=== PATIENT | female | born 1935 | race Caucasian/White ===

== ENCOUNTER 2019-02-26 12:19 | Inpatient (IN) | payer MEDICARE ==
[~2019-02-26] VITALS: Ht 160 cm; Wt 88.9 kg
[~2019-02-26 12:19] MED LIST: AMIT50TA PO; ATEN1TAB4 PO; FLUT1DIS3 IH; FURO-68 PO; POTA20TA4 PO
[2019-02-26] MEDS ORDERED: ASPIRIN 81 MG TAB.CHEW PO ONE (13:00)
[2019-02-26] MEDS ORDERED: dilTIAZem 25 MG/5 ML VIAL IVP ONE (13:00)
[2019-02-26] MEDS ORDERED: dilTIAZem VIAL 125 MG in IV DEXTROSE 5% 100 ML IV ONE (13:00)
--- NOTE | 2019-02-26 13:03 | PHYS DOC ---
Past History Past Medical History: Hypertension Past Surgical History: Appendectomy, Hysterectomy, Tonsillectomy Alcohol Use: None Drug Use: None Adult General Chief Complaint Chief Complaint: SHORTNESS OF BREATH HPI HPI Patient is a 84-year-old female who presents with dyspnea on exertion. This is been getting worse for the past 5 days. No chest pain. No palpitations. No orthopnea or postural nocturnal dyspnea. No new leg swelling. She was at her primary care physician's office who noted that her EKG was significantly different than previous. She was sent to the ER for further evaluation and treatment.[] Review of Systems Review of Systems Constitutional: Denies fever or chills [] Eyes: Denies change in visual acuity, redness, or eye pain [] HENT: Denies nasal congestion or sore throat [] Respiratory: Denies cough or shortness of breath [] Cardiovascular: No additional information not addressed in HPI [] GI: Denies abdominal pain, nausea, vomiting, bloody stools or diarrhea [] : Denies dysuria or hematuria [] Musculoskeletal: Denies back pain or joint pain [] Integument: Denies rash or skin lesions [] Neurologic: Denies headache, focal weakness or sensory changes [] Endocrine: Denies polyuria or polydipsia [] All other systems were reviewed and found to be within normal limits, except as documented in this note. Current Medications Current Medications Current Medications Medications (Trade) Dose Ordered Sig/[facility] Start Time Stop Time Status Last Admin Dose Admin Aspirin (Children'S Aspirin) 324 mg 1X ONCE 02/26/19 13:00 02/26/19 13:01 Diltiazem HCl (Cardizem Iv Push) 10 mg 1X ONCE 02/26/19 13:00 02/26/19 13:01 Diltiazem HCl 125 mg/Dextrose 125 ml @ 5 mls/hr 1X ONCE 02/26/19 13:00 02/27/19 13:59 UNV Allergies Allergies Allergies Coded Allergies Type Severity Reaction Last Updated Verified Sulfa (Sulfonamide Antibiotics) Allergy Severe 06/11/16 Yes celecoxib Allergy Intermediate Hives 06/11/16 Yes Physical Exam Physical Exam Constitutional: Well developed, well nourished, no acute distress, non-toxic appearance. [] HENT: Normocephalic, atraumatic, bilateral external ears normal, oropharynx moist, no oral exudates, nose normal. [] Eyes: PERRLA, EOMI, conjunctiva normal, no discharge. [] Neck: Normal range of motion, no tenderness, supple, no stridor. [] Cardiovascular:Heart rate is tachycardia with an irregularly irregular rhythm, no murmur [] Lungs & Thorax: Bilateral breath sounds clear to auscultation [] Abdomen: Bowel sounds normal, soft, no tenderness, no masses, no pulsatile masses. [] Skin: Warm, dry, no erythema, no rash. [] Back: No tenderness, no CVA tenderness. [] Extremities: No tenderness, no cyanosis, no clubbing, ROM intact, no edema. [] Neurologic: Alert and oriented X 3, normal motor function, normal sensory function, no focal deficits noted. [] Psychologic: Affect normal, judgement normal, mood normal. [] Current Patient Data Vital Signs Vital Signs Date Time Temp Pulse Resp B/P (MAP) Pulse Ox O2 Delivery O2 Flow Rate FiO2 02/26/19 12:40 97.3 120 24 95 Room Air EKG EKG EKG shows an irregular rhythm at 130 bpm, no P waves found. QRS axis of 146, right axis deviation, QTC 496 ms, no ST elevations. Interpreted by me at 1239 Repeat EKG after diltiazem showed an irregularly irregular rhythm with a rate of 10 5 bpm, QRS axis of 134, right axis deviation, QTC of 472 ms. interpreted by me at 1339[] Radiology/Procedures Radiology/Procedures PROCEDURE: PORTABLE CHEST 1V Portable chest, 02/26/2019: HISTORY: Chest pain The left ventricle is prominent. There is calcific plaquing of the aorta. No pulmonary infiltrate is seen. A dense nodule projected over the left lower chest may be a granuloma. Right hemidiaphragm is mildly elevated. There is no evidence of pleural fluid. IMPRESSION: 1. Left ventricular enlargement and aortic atherosclerosis. 2. Left lower chest nodule which may be a granuloma. Comparison with previous chest radiographs if available and/or radiographic follow-up is suggested to establish stability. 3. No acute infiltrates.[] Course & Med Decision Making Course & Med Decision Making Pertinent Labs and Imaging studies reviewed. (See chart for details) ED course: Patient arrived, was placed in bed, and tolerated exam well. After evaluation of the EKG, diltiazem bolus and infusion was started. This improved her heart rate to the low 100s from the 130s where it had been. Patient continued to be pain-free. After the return of the laboratory and imaging studies, these were discussed with the patient and family who voiced understanding. Consultation was made with hospitalist service who graciously accepted the patient for admission. She was admitted in improved condition. Medical decision making: Patient appears to be in atrial fibrillation with rapid ventricular response. This does not appear to be an acute coronary syndrome. Will start patient on enoxaparin to prevent blood clots. There is an elevated BNP without overt evidence of failure on her chest x-ray. Critical care time of 35 minutes for direct patient care, interpretation of laboratory testing and x-rays, discussion with patient and family, providing cardioactive infusion of medication, and discussion with consultants.[] Dragon Disclaimer Dragon Disclaimer This electronic medical record was generated, in whole or in part, using a voice recognition dictation system. Departure Departure: Impression: Primary Impression: Atrial fibrillation with rapid ventricular response Disposition: ADMITTED INPATIENT Admitting Physician: Rachelle Cole Condition: IMPROVED Referrals: RAY SINGH MD (PCP) MAR DELGADO DO Feb 26, 2019 13:03
[2019-02-26] MEDS ORDERED: IV DEXTROSE 5% 100 ML IV ONE (13:14)
--- NOTE | 2019-02-26 13:17 | RAD ---
Portable chest, 02/26/2019: HISTORY: Chest pain The left ventricle is prominent. There is calcific plaquing of the aorta. No pulmonary infiltrate is seen. A dense nodule projected over the left lower chest may be a granuloma. Right hemidiaphragm is mildly elevated. There is no evidence of pleural fluid. IMPRESSION: 1. Left ventricular enlargement and aortic atherosclerosis. 2. Left lower chest nodule which may be a granuloma. Comparison with previous chest radiographs if available and/or radiographic follow-up is suggested to establish stability. 3. No acute infiltrates. Electronically signed by: Romero Koo MD (02/26/2019 1:13 PM) [facility]
[2019-02-26 13:25] LABS: BASO # 0.1 x10^3/uL (0.0-0.2); BASO % 1 % (0-3); EOS # 0.2 x10^3/uL (0.0-0.7); EOS % 2 % (0-3); HEMATOCRIT 42.2 % (36.0-47.0); HEMOGLOBIN 14.3 g/dL (12.0-15.5); LYMPH # 2.1 x10^3/uL (1.0-4.8); LYMPH % 24 % (24-48); MEAN CORPUSCULAR HEMOGLOBIN 30 pg (25-35); MEAN CORPUSCULAR HGB CONC 34 g/dL (31-37); MEAN CORPUSCULAR VOLUME 89 fL (79-100); MONO # 1.2 x10^3/uL (0.0-1.1); MONO % 14 % (0-9); NEUT % 59 % (31-73); PLATELET COUNT 232 x10^3/uL (140-400); RED BLOOD COUNT 4.75 x10^6/uL (3.50-5.40); RED CELL DISTRIBUTION WIDTH 13.9 % (11.5-14.5); WHITE BLOOD COUNT 8.6 x10^3/uL (4.0-11.0)
[2019-02-26 13:42] LABS: ALBUMIN 3.6 g/dL (3.4-5.0); ALBUMIN/GLOBULIN RATIO 0.9 (1.0-1.7); CALCIUM 9.4 mg/dL (8.5-10.1); CREATININE 1.1 mg/dL (0.6-1.0); GFR 47.4; MAGNESIUM 1.9 mg/dL (1.8-2.4); TOTAL BILIRUBIN 0.5 mg/dL (0.2-1.0); TOTAL PROTEIN 7.4 g/dL (6.4-8.2)
[2019-02-26 13:44] LABS: POTASSIUM 2.5 mmol/L (3.5-5.1)
--- NOTE | 2019-02-26 13:54 | EKG ---
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
[2019-02-26] MEDS ORDERED: POTASSIUM CHLORIDE 20 MEQ/15 ML ORAL LIQUID. PO ONE (14:15)
--- NOTE | 2019-02-26 14:25 | EKG ---
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
[2019-02-26] MEDS ORDERED: ONDANSETRON PF 4 MG/2 ML VIAL. IV PRN (14:45)
[2019-02-26] MEDS ORDERED: ACETAMINOPHEN 325 MG TABLET PO PRN (14:45)
[2019-02-26] MEDS ORDERED: NITROGLYCERIN SUBLINGUAL 0.4 MG BOTTLE OF 25. SL PRN (14:45)
[2019-02-26] MEDS ORDERED: MIRT30TA3 PO (14:59)
[2019-02-26] MEDS ORDERED: MIRT15TA3 PO (14:59)
[2019-02-26] MEDS ORDERED: ENOXAPARIN ** NOTE DOSE ** SYRINGE SQ ONE (15:00)
[2019-02-26 16:23] VITALS: BP 136/76
[2019-02-26] MEDS: IPRATRPIUM/ALBUTEROL 0.5/2.5MG 3 ML NEBU. NEB SCH ×2 (16:36→20:13)
[2019-02-26] MEDS: POTASSIUM CHLORIDE 20 MEQ/15 ML ORAL LIQUID. PO SCH ×2 (17:37→19:23)
[2019-02-26 18:08] VITALS: BP 105/62
[2019-02-26 19:25] VITALS: BP 116/63
[2019-02-26 22:23] VITALS: BP 114/49
[2019-02-26 23:30] VITALS: BP 111/50
[2019-02-27] VITALS (23 sets, daily range): BP systolic 95–144; BP diastolic 46–84
[2019-02-27] MEDS: dilTIAZem VIAL 125 MG in IV DEXTROSE 5% 100 ML IV PRN ×2 (04:00→13:59)
[2019-02-27] MEDS: IPRATRPIUM/ALBUTEROL 0.5/2.5MG 3 ML NEBU. NEB SCH ×2 (05:19→09:13)
[2019-02-27 06:17] LABS: BASO # 0.1 x10^3/uL (0.0-0.2); BASO % 1 % (0-3); EOS # 0.2 x10^3/uL (0.0-0.7); EOS % 2 % (0-3); HEMOGLOBIN 13.5 g/dL (12.0-15.5); LYMPH # 3.8 x10^3/uL (1.0-4.8); LYMPH % 41 % (24-48); MEAN CORPUSCULAR HEMOGLOBIN 30 pg (25-35); MEAN CORPUSCULAR HGB CONC 34 g/dL (31-37); MEAN CORPUSCULAR VOLUME 90 fL (79-100); MONO # 1.5 x10^3/uL (0.0-1.1); MONO % 16 % (0-9); NEUT # 3.7 x10^3uL (1.8-7.7); NEUT % 40 % (31-73); PLATELET COUNT 199 x10^3/uL (140-400); RED BLOOD COUNT 4.48 x10^6/uL (3.50-5.40); RED CELL DISTRIBUTION WIDTH 13.7 % (11.5-14.5); WHITE BLOOD COUNT 9.3 x10^3/uL (4.0-11.0)
[2019-02-27 06:34] LABS: ALBUMIN 3.3 g/dL (3.4-5.0); CALCIUM 8.8 mg/dL (8.5-10.1); CREATININE 1.1 mg/dL (0.6-1.0); GFR 47.4; TOTAL BILIRUBIN 0.6 mg/dL (0.2-1.0); TOTAL PROTEIN 6.7 g/dL (6.4-8.2)
[2019-02-27 06:35] LABS: POTASSIUM 2.7 mmol/L (3.5-5.1)
[2019-02-27] MEDS: POTASSIUM CHLORIDE 20 MEQ/15 ML ORAL LIQUID. PO SCH ×4 (07:58→11:01)
--- NOTE | 2019-02-27 09:28 | PDOC2 ---
CONSULT Date of Admission DATE: 02/27/19 TIME: 09:23 Reason for Consult: atrial fibrillation with rapid ventricular response Problem List Problems Medical Problems: (1) Atrial fibrillation with rapid ventricular response Status: Acute History of Present Illness Ms Hernández is an 84 year old female who presented with complaints of shortness of breath and increasing fatigue/weakness over the last 5 days. She was evaluated in the ED and found to be in atrial fibrillation with RVR. She was admitted and started on Cardizem drip and consult was called. She reports just having no energy for the last week and some shortness of breath on exertion. She denies any sense of her heart racing normally although at the time of our discussion her rate was 155 and she states she was aware of this. She reports a prior history of palpitations and her heart pounding and has been taking atenolol for years for this. She denies any prior diagnosis of atrial fibrillation. She reports a history of sleep apnea and uses the same CPAP for many years. She denies any chest pain, lightheadedness, presyncope or syncope. She denies congestive symptoms but does sleep with HOB elevated for comfort. She reports edema worse in the evenings and gone in the mornings that she takes chlorthalidone daily for. She reports she does take a lasix occasionally when she feels it is needed. She takes daily potassium but does not increase the dose when taking lasix. She reports problems with chronic diarrhea. Past Medical History echo 03/20/16 Normal chamber sizes Left ventricular ejection fraction = 65% Unremarkable cardiac valve structures and function Pulmonary artery pressure = 29mmHg No significant pericardial effusion No prior study is available for comparison. Cardiovascular: HTN Pulmonary: Asthma, Other (RICA on CPAP) GI: GERD, Other (chronic diarrhea) Psych: Anxiety Musculoskeletal: Osteoarthritis, Swelling Past Surgical History: Appendectomy, Hysterectomy, Other (bunionectomy) Family History stroke Social History non smoker, no significant ETOH, no illicit drugs Current Medications Current Medications Diltiazem HCl (Cardizem Iv Push) 10 mg 1X ONCE IVP Last administered on at 13:09; Start 02/26/19 at 13:00; Stop 02/26/19 at 13:01; Status DC Aspirin (Children'S Aspirin) 324 mg 1X ONCE PO Last administered on 02/26/19at 13:07; Start 02/26/19 at 13:00; Stop 02/26/19 at 13:01; Status DC Diltiazem HCl 125 mg/Dextrose 125 ml @ 5 mls/hr 1X ONCE IV Last administered on 02/26/19at 13:19; Start 02/26/19 at 13:00; Stop 02/27/19 at 07:11; Status DC Dextrose 100 ml @ As Directed STK-MED ONCE IV ; Start 02/26/19 at 13:14; Stop 02/26/19 at 13:15; Status DC Diltiazem HCl (Cardizem) 125 mg STK-MED ONCE IV ; Start 02/26/19 at 13:14; Stop 02/26/19 at 13:15; Status DC Potassium Chloride (KCl Oral Soln) 40 meq 1X ONCE PO Last administered on 02/26at 14:00; Start 02/26/19 at 14:15; Stop 02/26/19 at 14:16; Status DC Ondansetron HCl (Zofran) 4 mg PRN Q4HRS PRN IV NAUSEA/VOMITING; Start 02/26/19 at 14:45; Stop 02/27/19 at 14:44 Acetaminophen (Tylenol) 650 mg PRN Q4HRS PRN PO FEVER Last administered on 02/27at 01:17; Start 02/26/19 at 14:45; Stop 02/27/19 at 14:44 Nitroglycerin (Nitrostat) 0.4 mg PRN Q5MIN PRN SL CHEST PAIN; Start 02/26/19 at 14:45; Stop 02/27/19 at 14:44 Albuterol/ Ipratropium (Duoneb) 3 ml RTQID NEB Last administered on 02/27/19at 09:13; Start 02/26/19 at 16:00; Stop 02/27/19 at 15:59 Enoxaparin Sodium (Lovenox 80mg Syringe) 80 mg 1X ONCE SQ Last administered on 02/26/19at 15:01; Start 02/26/19 at 15:00; Stop 02/26/19 at 15:01; Status DC Potassium Chloride (KCl Oral Soln) 40 meq Q2H PO Last administered on at 19:23; Start 02/26/19 at 17:15; Stop 02/26/19 at 19:16; Status DC Diltiazem HCl 125 mg/Dextrose 125 ml @ 5 mls/hr CONT PRN IV SEE I/O RECORD Last administered on 02/27/19at 04:00; Start 02/26/19 at 22:30 Potassium Chloride (KCl Oral Soln) 40 meq Q1HR PO Last administered on at 08:53; Start 02/27/19 at 07:00; Stop 02/27/19 at 10:01 Active Scripts Active Reported Mirtazapine 30 Mg Tablet 1 Tab PO PRN QHS Mirtazapine 15 Mg Tablet 1 Tab PO PRN QHS PRN Klor-Con M20 (Potassium Chloride) 20 Meq Tab.er.prt 2 Tab PO DAILY Atenolol-Chlorthalidone 100-25 (Atenolol/Chlorthalidone) 1 Each Tablet 1 Tab PO DAILY Lasix (Furosemide) 40 Mg Tablet 20 Mg PO DAILY Allergies: Coded Allergies: Sulfa (Sulfonamide Antibiotics) (Verified Allergy, Severe, 06/11/16) celecoxib (Verified Allergy, Intermediate, Hives, 06/11/16) Review of System as per HPI or negative General: Alert, Oriented X3, Cooperative, No acute distress HEENT: Atraumatic, EOMI, Mucous membr. moist/pink Lungs: Clear to auscultation, Normal air movement Heart: Other (IRR, tachycardia, no gallops, clicks or rubs) Abdomen: Normal bowel sounds, Soft, No tenderness Extremities: No cyanosis, No edema, Normal pulses Neuro: Normal speech, Strength at 5/5 X4 ext Psych/Mental Status: Mental status NL, Mood NL VITALS Vital Signs Date Time Temp Pulse Resp B/P (MAP) Pulse Ox O2 Delivery O2 Flow Rate FiO2 02/27/19 09:14 97 Nasal Cannula 1.0 02/27/19 09:07 117 22 118/55 (76) 02/26/19 12:40 97.3 Labs Laboratory Tests Test 02/26/19 13:12 02/27/19 05:50 White Blood Count 8.6 x10^3/uL (4.0-11.0) 9.3 x10^3/uL (4.0-11.0) Red Blood Count 4.75 x10^6/uL (3.50-5.40) 4.48 x10^6/uL (3.50-5.40) Hemoglobin 14.3 g/dL (12.0-15.5) 13.5 g/dL (12.0-15.5) Hematocrit 42.2 % (36.0-47.0) 40.0 % (36.0-47.0) Mean Corpuscular Volume 89 fL (79-100) 90 fL (79-100) Mean Corpuscular Hemoglobin 30 pg (25-35) 30 pg (25-35) Mean Corpuscular Hemoglobin Concent 34 g/dL (31-37) 34 g/dL (31-37) Red Cell Distribution Width 13.9 % (11.5-14.5) 13.7 % (11.5-14.5) Platelet Count 232 x10^3/uL (140-400) 199 x10^3/uL (140-400) Neutrophils (%) (Auto) 59 % (31-73) 40 % (31-73) Lymphocytes (%) (Auto) 24 % (24-48) 41 % (24-48) Monocytes (%) (Auto) 14 % (0-9) 16 % (0-9) Eosinophils (%) (Auto) 2 % (0-3) 2 % (0-3) Basophils (%) (Auto) 1 % (0-3) 1 % (0-3) Neutrophils # (Auto) 5.0 x10^3uL (1.8-7.7) 3.7 x10^3uL (1.8-7.7) Lymphocytes # (Auto) 2.1 x10^3/uL (1.0-4.8) 3.8 x10^3/uL (1.0-4.8) Monocytes # (Auto) 1.2 x10^3/uL (0.0-1.1) 1.5 x10^3/uL (0.0-1.1) Eosinophils # (Auto) 0.2 x10^3/uL (0.0-0.7) 0.2 x10^3/uL (0.0-0.7) Basophils # (Auto) 0.1 x10^3/uL (0.0-0.2) 0.1 x10^3/uL (0.0-0.2) Prothrombin Time 11.5 SEC (9.4-11.4) Prothromb Time International Ratio 1.2 (0.9-1.1) Sodium Level 141 mmol/L (136-145) 141 mmol/L (136-145) Potassium Level 2.5 mmol/L (3.5-5.1) 2.7 mmol/L (3.5-5.1) Chloride Level 101 mmol/L (98-107) 104 mmol/L (98-107) Carbon Dioxide Level 28 mmol/L (21-32) 27 mmol/L (21-32) Anion Gap 12 (6-14) 10 (6-14) Blood Urea Nitrogen 27 mg/dL (7-20) 27 mg/dL (7-20) Creatinine 1.1 mg/dL (0.6-1.0) 1.1 mg/dL (0.6-1.0) Estimated GFR (Cockcroft-Gault) 47.4 47.4 BUN/Creatinine Ratio 25 (6-20) 25 (6-20) Glucose Level 99 mg/dL (70-99) 105 mg/dL (70-99) Calcium Level 9.4 mg/dL (8.5-10.1) 8.8 mg/dL (8.5-10.1) Magnesium Level 1.9 mg/dL (1.8-2.4) Total Bilirubin 0.5 mg/dL (0.2-1.0) 0.6 mg/dL (0.2-1.0) Aspartate Amino Transf (AST/SGOT) 19 U/L (15-37) 18 U/L (15-37) Alanine Aminotransferase (ALT/SGPT) 21 U/L (14-59) 17 U/L (14-59) Alkaline Phosphatase 84 U/L (46-116) 74 U/L (46-116) Troponin I Quantitative 0.031 ng/mL (0-0.055) HU-Jfm-F-Type Natriuretic Peptide 7759 pg/mL (0-449) Total Protein 7.4 g/dL (6.4-8.2) 6.7 g/dL (6.4-8.2) Albumin 3.6 g/dL (3.4-5.0) 3.3 g/dL (3.4-5.0) Albumin/Globulin Ratio 0.9 (1.0-1.7) 1.0 (1.0-1.7) Lipase 103 U/L (73-393) Images CXR - IMPRESSION: 1. Left ventricular enlargement and aortic atherosclerosis. 2. Left lower chest nodule which may be a granuloma. Comparison with previous chest radiographs if available and/or radiographic follow-up is suggested to establish stability. 3. No acute infiltrates. EKG - atrial fibrillation with RVR, RBBB, no acute ischemic changes Assessment/Plan 1. atrial fibrillation with RVR unknown duration - Cardizem for rate control, [id number]. Will need OAC. Plan rate control and MCT for burden on discharge. Check echo and tsh. correct electrolytes. 2. trop elevation - indeterminate range. likely secondary to #1. repeat x 1 and consider outpatient MPI. 3. severe hypokalemia - likely secondary to diuretic use in combination with diarrhea. Replace and discontinue Lasix and chlorthalidone. 4. Hypertension - controlled. 5. venous insufficiency - KATHRYN stoll, outpatient venous reflux study 6. RICA - on CPAP. Suggest outpatient referral to Dr Pineda for eval and CPAP titration. 7. anxiety JALEEL MASSEY AUTOMOTIVE SALES REPRESENTATIVE Feb 27, 2019 09:28
[2019-02-27] MEDS ORDERED: DIGOXIN IV 500 MCG/2 ML AMPUL. ONE (09:30)
[2019-02-27] MEDS ORDERED: DIGOXIN IV 500 MCG/2 ML AMPUL. IV ONE (09:50)
[2019-02-27] MEDS ORDERED: clonazePAM 0.5 MG TABLET PO PRN (10:45)
[2019-02-27] MEDS: APIXABAN 5 MG TABLET. PO SCH ×2 (10:59→19:41)
--- NOTE | 2019-02-27 14:27 | HP ---
ADMIT DATE: 02/26/2019 HISTORY OF PRESENT ILLNESS: The patient is an 84-year-old female patient who came to the Emergency Room complaining of shortness of breath started about 5 days ago. Denied any chest pain or palpitation. Denied any orthopnea or paroxysmal nocturnal dyspnea, however, she has been at an adjustable bed and because of gastroesophageal reflux disease, she always sleeps with her head the bed up. She does have shortness of breath at rest. She was seen at her primary care physician and was noted that her EKG was significantly different and was transferred to [facility] Emergency Room where she was diagnosed with atrial fibrillation with rapid ventricular response and was admitted to control the heart rate, started her on blood thinner and consult the cardiology team to assist with her management. PAST MEDICAL HISTORY: Her past medical history is significant for hypertension, recurrent urinary tract infections. She is known to have bronchial asthma since childhood. She has also had Hay fever, morbid obesity and obstructive sleep apnea. PAST SURGICAL HISTORY: Past surgical history is significant for bilateral cataract extraction, tonsillectomy, appendectomy, total abdominal hysterectomy, bilateral salpingo-oophorectomy. She underwent esophagogastroduodenoscopy as well as colonoscopy. ALLERGIES: She is ALLERGIC TO CELEBREX, SULFA. MEDICATIONS: She is currently on following medications: She is on atenolol/chlorthalidone 100/25 one tablet once a day, mirtazapine 50 mg at bedtime, mirtazapine 30 mg at bedtime, potassium chloride 20 mEq, she takes 2 tablets daily, and furosemide 40 mg once a day. FAMILY HISTORY: She has 3 sisters and 1 brother, all . Her oldest and youngest sister , both were morbidly obese, in their 50s and her oldest sister of diabetic infected foot and sepsis. Her younger sister . She had multiple pulmonary emboli and once they stopped her anticoagulant and noted for cardiac surgery, she apparently because of the surgical complication. Her third sister at age of 83 due to cerebrovascular accident. Her brother at the age of 90. He fell and broke his rib and of morphine overdose, according to her. Her father due to massive myocardial infarction at the age of 70. Mother at the age of 81 because of CVA. SOCIAL HISTORY: She is , lives alone and she does not smoke, drink alcohol or use recreational drugs. She continued to work in [employer]. REVIEW OF SYSTEMS: The patient denied any blurring of vision. She has bilateral cataract extraction, but denied any glaucoma or macular degeneration. Denied any earache, tinnitus or sensorineural deafness. Denied any nosebleeds, stuffy nose or postnasal drip. Denied any sore throat, sore tongue, toothache, hoarseness of voice or difficulty swallowing. She denied any nausea, vomiting, diarrhea or constipation. Denied any hematemesis, melena or hematochezia. Denied any dysuria, frequency or hematuria. Denied any chest pain. Did complain of shortness of breath even with exertion, but denied any orthopnea or paroxysmal nocturnal dyspnea. Denied any cough, phlegm or hemoptysis. Denied any dizziness, lightheadedness, or vertigo. PHYSICAL EXAMINATION: GENERAL: On arrival to the Emergency Room, the patient looked pale, no jaundice, cyanosis or thyromegaly. No jugular venous distention. No lower limb edema. VITAL SIGNS: Her heart rate was 120, irregularly irregular. Her blood pressure was 127/73, temperature was 97.3, respiratory rate was 24 and oxygen saturation was 95% on room air. HEENT: Examination of the head, eyes, ears, nose and throat showed normocephalic, atraumatic. NECK: Supple. HEART: Showed irregular first heart sounds and normal second heart sounds with no gallop, rub or murmur. CHEST: Clear to auscultation. No crepitation or rhonchi. ABDOMEN: Distended, soft, nontender. NEUROLOGIC: She is awake, alert, responding appropriately. All her cranial nerves are intact. EXTREMITIES: She moves without difficulty. She ambulates without assistance or assistive devices, although since last Saturday, she has been extremely short of breath and can walk only for short distances. LABORATORY DATA AND IMAGING STUDIES: While in the Emergency Room, she has had lab work done, which showed a white cell count of 8600, hemoglobin 14, hematocrit 42, MCV 89 and platelet count 232,000. Her chemistry showed a serum sodium 141, potassium 2.5, chloride 101, bicarbonate 28, anion gap of 12, BUN 27, creatinine was 1.1. Estimated GFR was 47 mL per minute. Her glucose was 25, calcium was 9.4, magnesium was 1.9. Total bilirubin, AST, ALT, alkaline phosphatase were normal. Her beta natriuretic peptide was 7759. Total protein was 7.4, albumin was 3.6. Lipase was 103. Her TSH was 1.595. Her prothrombin time was 11.5, INR 1.2 and her EKG showed that she was in atrial fibrillation with rapid ventricular response with the heart rate of 130 beats per minute, no P waves, QRS axis of 146 milliseconds with right axis deviation and corrected QT interval of 496 milliseconds, no ST segment elevation. The patient was given a bolus of Cardizem and started on Cardizem drip and has had a chest x-ray, which basically showed that the patient has left ventricular enlargement and aortic atherosclerosis, left lower chest nodule, which may be a granuloma comparison with previous chest radiograph, if available and/or radiographic followup is suggested to establish stability. There is no acute infiltrate. ASSESSMENT AND PLAN: So, in summary, this is an 84-year-old female patient, who was admitted with new onset atrial fibrillation with rapid ventricular response. She was treated with a loading dose of Cardizem, started on Cardizem drip, and she was started on Eliquis and we will consult the cardiology team and decide on further management accordingly. BERTHA LESTER MD DR: NEETU/cindi JOB#: [id number] / [id number]
[2019-02-27] MEDS ORDERED: IPRATRPIUM/ALBUTEROL 0.5/2.5MG 3 ML NEBU. NEB PRN (14:45)
--- NOTE | 2019-02-27 17:29 | EKG ---
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
[2019-02-27] MEDS ORDERED: AMIODARONE 900 MG in IV DEXTROSE 5% 500 ML IV ONE (19:30)
[2019-02-27] MEDS ORDERED: AMIODARONE 150 MG in IV DEXTROSE 5% 100 ML IVP ONE (19:30)
--- NOTE | 2019-02-27 22:15 | PN ---
DATE: 02/27/2019 SUBJECTIVE: The patient is sitting in her recliner comfortably, in no apparent distress. Her heart rate continued to be elevated, in fact her heart rate is up to 150. She is on a Cardizem drip at 15 mg per hour and she has received 500 mcg of digoxin without really much improvement. She is scheduled for an echocardiogram that was not done yet. OBJECTIVE: GENERAL: On examining her this afternoon, she was sitting comfortably, in no apparent distress, slightly pale, no jaundice, cyanosis, or thyromegaly. No jugular venous distension. No lower limb edema. VITAL SIGNS: Her heart rate was 126, blood pressure 113/51, temperature was 98, respiratory rate was 20, and oxygen saturation was 98% on 2 liters of oxygen. HEAD, EYES, EARS, NOSE AND THROAT: Showed normocephalic, atraumatic. NECK: Supple. HEART: Showed normal first and second heart sounds. No gallop, rub or murmur. CHEST: Clear to auscultation. No crepitation or rhonchi. ABDOMEN: Distended, soft, nontender. No guarding or rigidity. No organomegaly. All hernial orifice intact. Bowel sounds normal. NEUROLOGIC: She was awake, alert, responding appropriately. All cranial nerves intact. She moves extremities without difficulty. She ambulates normally without assistance or assistive devices. Her intake and output incompletely recorded. LABORATORY DATA: As of this afternoon showed her serum sodium was 141, potassium 4.4, chloride 104, bicarbonate 27, anion gap of 10, BUN 27, creatinine 1.1, estimated GFR was 47 mL per minute. Her glucose was 105, calcium was 8.8. Total bilirubin, AST, ALT, alkaline phosphatase were normal. She has 2 sets of cardiac enzymes show troponin to be slightly elevated at 0.031 and 0.022. Her thyroid function test is normal. IMPRESSION: In summary, this is an 84-year-old female patient with a new onset atrial fibrillation with rapid ventricular response. The heart rate still not controlled despite the fact that she has received Cardizem bolus and she is on a continuous infusion at 15 mg per hour and she received 500 mcg of digoxin. She is now on apixaban 5 mg twice a day and she is scheduled for an echocardiogram and evaluation by the alarm mechanism adjuster. BERTHA LESTER MD DR: Dora JOB#: [id number] / [id number]
[2019-02-28] VITALS (27 sets, daily range): BP systolic 96–135; BP diastolic 47–95
[2019-02-28 08:13] LABS: ALBUMIN 3.4 g/dL (3.4-5.0); ALBUMIN/GLOBULIN RATIO 0.9 (1.0-1.7); CALCIUM 9.3 mg/dL (8.5-10.1); CREATININE 0.9 mg/dL (0.6-1.0); GFR 59.8; MAGNESIUM 1.8 mg/dL (1.8-2.4); POTASSIUM 3.8 mmol/L (3.5-5.1); TOTAL BILIRUBIN 0.6 mg/dL (0.2-1.0)
[2019-02-28] MEDS: APIXABAN 5 MG TABLET. PO SCH ×2 (09:09→19:40)
[2019-02-28] MEDS: AMIODARONE HCL 200 MG TABLET PO SCH (09:57)
--- NOTE | 2019-02-28 10:28 | EKG ---
[address] [address] Test Date: 2019-02-28 Test Time: 09:00:08 Pat Name: CARLA SYED Department: Room: [facility]04 1 Gender: F Metal Melter: : 1935 Requested By: FERNANDEZ HUBER Order Number: [id number] Reading MD: Fernandez Huber MD Measurements Intervals [place] Rate: 140 P: 90 MI: 94 QRS: 169 QRSD: 122 T: -28 QT: 304 QTc: 468 Interpretive Statements SVT NON-SPECIFIC ST/T CHANGES RBBB Electronically Signed On 03-06-2019 14:42:34 CDT by Fernandez Huber MD
--- NOTE | 2019-02-28 14:34 | CARD ---
MR#: [id number] Date of Study: 02/27/2019 Ordering Physician: BERTHA LESTER, Referring Physician: BERTHA LESTER, Tech: Niya Martinez NIKKY APPROVED REPORT EXAM: Two-dimensional and M-mode echocardiogram with Doppler and color Doppler. Other Information Quality : AverageHR: 115bpm Rhythm : Atrial Fibrillation INDICATION Atrial Fibrillation 2D DIMENSIONS RVDd3.8 (2.9-3.5cm)Left Atrium(2D)4.0 (1.6-4.0cm) IVSd1.7 (0.7-1.1cm)Aortic Root(2D)3.0 (2.0-3.7cm) LVDd3.4 (3.9-5.9cm)LVOT Diameter1.9 (1.8-2.4cm) PWd1.0 (0.7-1.1cm)LVDs2.3 (2.5-4.0cm) FS (%) 32.0 %SV29.5 ml LVEF(%)61.3 (>50%) M-Mode DIMENSIONS Left Atrium(MM)4.09 (2.5-4.0cm)Aortic Root2.65 (2.2-3.7cm) Aortic Valve AoV Peak Yash.149.5cm/sAoV VTI22.8cm AO Peak GR.8.9mmHgLVOT Peak Yash.106.4cm/s LVOT VTI 21.07cmAO Mean GR.5mmHg BUD (VMAX)2.57ah9JCK (VTI)2.70cm2 Mitral Valve MV E Sbhtxtjf118.3cm/sMV E Peak Gr.20mmHg MV DECEL [id number] A Pidkwqle74.8cm/s MV E Mean Gr.7mmHgE/A Ratio3.5 Pulmonary Valve PV Peak Fdcudiyy86.5cm/sPV Peak Grad.3mmHg Tricuspid Valve TR P. Jcgctasv234je/sRAP DIMTSSPC1zuOy TR Peak Gr.20zoPeCDEI92dlSg LEFT VENTRICLE The left ventricle cavity is small. Proximal septal thickening is noted. The left ventricular systoli c function is normal and the ejection fraction is within normal range. The Ejection Fraction is 60-65 %. There is normal LV segmental wall motion. Tissue Doppler imaging reveals moderate left ventricular diastolic dysfunction. RIGHT VENTRICLE The right ventricle is mildly dilated. There is normal right ventricular wall thickness. The right ve ntricular systolic function is normal. ATRIA The left atrium is mildly dilated. The right atrium is mildly dilated. The interatrial septum is inta ct with no evidence for an atrial septal defect or patent foramen ovale as noted on 2-D or Doppler im aging. AORTIC VALVE The aortic valve is calcified but opens well. The aortic valve is trileaflet. Doppler and Color Flow revealed no significant aortic regurgitation. There is no significant aortic valvular stenosis. MITRAL VALVE The mitral valve is calcified and displays decreased opening. There is no evidence of mitral valve pr olapse. There is moderate mitral valve stenosis. Calculated mitral valve area is 1.5 cm2 with maximum pressure gradient of 20 mmHg and mean pressure gradient of 7 mmHg. Doppler and Color-flow revealed m ild mitral regurgitation. TRICUSPID VALVE The tricuspid valve is normal in structure and function. Doppler and Color Flow revealed mild tricusp id regurgitation. There is moderate pulmonary hypertension. The PA pressure was estimated at 40 mmHg. There is no tricuspid valve prolapse or vegetation. There is no tricuspid valve stenosis. PULMONIC VALVE Doppler and Color Flow revealed trace pulmonic valvular regurgitation. There is no pulmonic valvular stenosis. GREAT VESSELS The aortic root is normal in size. The ascending aorta is normal in size. The IVC is normal in size a nd collapses <50% with inspiration. PERICARDIAL EFFUSION There is no evidence of significant pericardial effusion. Critical Notification Critical Value: No <Conclusion> The left ventricular systolic function is normal and the ejection fraction is within normal range. Th e Ejection Fraction is 60-65%. There is normal LV segmental wall motion. There is moderate mitral valve stenosis. Calculated mitral valve area is 1.5 cm2 with maximum pressur e gradient of 20 mmHg and mean pressure gradient of 7 mmHg. Doppler and Color Flow revealed mild tricuspid regurgitation. There is moderate pulmonary hypertensio n. The PA pressure was estimated at 40 mmHg. Signed by : Olivier Rivera, Electronically Approved : 02/28/2019 14:34:26
--- NOTE | 2019-02-28 15:28 | PN ---
DATE: 02/28/2019 SUBJECTIVE: The patient is sitting comfortably in her recliner, in no apparent distress. On questioning her, she denied any complaints, in particular any chest pain or shortness of breath, did sleep very well last night on her BiPAP machine. Her heart rate, however, continued to be suboptimally controlled despite being on amiodarone drip. OBJECTIVE: GENERAL: When I saw her this morning, she looked somewhat pale. No jaundice, cyanosis, or thyromegaly. No jugular venous distension. No limb edema. VITAL SIGNS: Her heart rate was 100, and variable from 105 to 140, irregularly irregular. Her blood pressure was 118/54, temperature was 98, respiratory rate was 22 and her oxygen saturation was 94% on room air. HEAD, EYES, EARS, NOSE AND THROAT: Normocephalic, atraumatic. NECK: Supple. HEART: Showed normal first and second sounds. No gallop, rub or murmur. CHEST: Clear to auscultation. No crepitation or rhonchi. ABDOMEN: Distended, soft, nontender. NEUROLOGIC: She is awake, alert, responding appropriately. Cranial nerves intact. She moves extremities without difficulty. She ambulates without assistance or assistive devices. Her intake was 1625, no output was recorded. LABORATORY DATA: This morning showed a serum sodium 139, potassium 3.8, chloride 103, bicarbonate 26, anion gap of 10, BUN 22, creatinine 0.9, estimated GFR was 59 mL per minute. Her glucose 95, calcium was 9.3, magnesium was 1.8. Total bilirubin, AST, ALT, alkaline phosphatase were normal. Total protein 7, albumin 3.4. Her prothrombin time was 11.5, INR 1.2. ASSESSMENT: 1. New onset atrial fibrillation with rapid ventricular response. The patient is on amiodarone drip. She is already on oral amiodarone and Cardizem. Patient is also on Eliquis for stroke prevention. 2. Other medical problems include hypertension. 3. Bronchial asthma. 4. Recurrent urinary tract infection. 5. Morbid obesity with obstructive sleep apnea, on BiPAP. PLAN: To continue with current plan of management. The patient has had an echocardiogram done, the results are still pending at the time of this dictation. BERTHA LESTER MD DR: Dora JOB#: [id number] / [id number]
[2019-02-28] MEDS ORDERED: DIGOXIN IV 500 MCG/2 ML AMPUL. IV ONE (16:45)
[2019-02-28] MEDS ORDERED: ACETAMINOPHEN 325 MG TABLET PO PRN (19:30)
[2019-02-28 20:13] LABS: BASO # 0.1 x10^3/uL (0.0-0.2); BASO % 1 % (0-3); EOS # 0.4 x10^3/uL (0.0-0.7); EOS % 5 % (0-3); HEMATOCRIT 41.4 % (36.0-47.0); HEMOGLOBIN 13.9 g/dL (12.0-15.5); LYMPH # 2.3 x10^3/uL (1.0-4.8); LYMPH % 25 % (24-48); MEAN CORPUSCULAR HEMOGLOBIN 30 pg (25-35); MEAN CORPUSCULAR HGB CONC 34 g/dL (31-37); MEAN CORPUSCULAR VOLUME 90 fL (79-100); MONO # 1.3 x10^3/uL (0.0-1.1); MONO % 14 % (0-9); NEUT # 5.2 x10^3uL (1.8-7.7); NEUT % 55 % (31-73); PLATELET COUNT 231 x10^3/uL (140-400); RED BLOOD COUNT 4.62 x10^6/uL (3.50-5.40); RED CELL DISTRIBUTION WIDTH 13.9 % (11.5-14.5); WHITE BLOOD COUNT 9.3 x10^3/uL (4.0-11.0)
[2019-02-28] MEDS ORDERED: METOPROLOL TARTRATE 5 MG/5 ML VIAL. IV ONE (21:30)
[2019-02-28] MEDS ORDERED: METOPROLOL TART IMMED RELEASE 25 MG TABLET PO ONE (21:30)
[2019-02-28 21:48] LABS: BILIRUBIN,URINE NEG (NEG); CLARITY,URINE TURBID; COLOR,URINE AMBER; GLUCOSE,URINE NEG (NEG)
[2019-02-28 21:49] LABS: BACTERIA,URINE MOD /HPF (0-FEW); NITRITE,URINE POS (NEG); SQUAMOUS EPITHELIAL CELL,UR MOD /LPF; UROBILINOGEN,URINE 2 mg/dL (0.2 mg/dL)
--- NOTE | 2019-02-28 22:36 | RAD ---
AP chest 02/28/2019 CLINICAL INDICATION: Fever. COMPARISON: Chest 02/26/2019 FINDINGS: Elevation of the right hemidiaphragm. Mild enlargement of the cardiac silhouette. There are mild bilateral interstitial opacities. No pleural effusion, pneumothorax or focal consolidation. Stable left perihilar calcified granuloma. IMPRESSION: 1. No focal consolidation. 2. Stable mild interstitial prominence, may be due to underlying chronic interstitial lung disease, though infection with atypical etiologies not excluded. Electronically signed by: Dajuan Coulter MD (02/28/2019 10:33 PM) [facility]
[2019-03-01] VITALS (22 sets, daily range): BP systolic 101–137; BP diastolic 58–83
[2019-03-01] MEDS: METOPROLOL TART IMMED RELEASE 25 MG TABLET PO SCH ×4 (01:04→18:27)
[2019-03-01] MEDS: AMIODARONE HCL 200 MG TABLET PO SCH (08:32)
[2019-03-01] MEDS: APIXABAN 5 MG TABLET. PO SCH ×2 (08:33→21:09)
--- NOTE | 2019-03-01 12:46 | PDOC ---
PROVIDER NOTE PROVIDER NOTE PROVIDER NOTE S: No acute events overnight. Continues to struggle with tachycardia and fatigue. O: VS: HR 120-130's, BP 120/80's. CVS: Tachycardic. No m/r/g. Irregular. PULM: Mild rales at the bases EXT: 1+ edema Labs reviewed: Hgb stable Cr wnl. Meds reviewed: Eliquis 5mg bid Metoprolol 25mg p.o q 6 hours. Diltiazem 120mg XL Amiodarone 400mg daily Impression: 1. Refractory afib with RVR. 2. HTN 3. Diastolic HF - acute on chronic 4. Mitral stenosis. Plan: 1. Increase Diltiazem to 120mg XL BID, Increase Metoprolol to 37.5mg q 6 hours 2. Continue amiodarone/eliquis/metoprolol at present dose. 3. Will consider RANDY/CVN tomorrow if still tachycardic. Patient prefers to be transferred to [place] to get this done. Based on HR in a.m., will plan accordingly. 4. Defer aggressive diuresis given lower BP's. FERNANDEZ HUBER MD Mar 01, 2019 12:46
[2019-03-01] MEDS ORDERED: METOPROLOL TART IMMED RELEASE 25 MG TABLET PO ONE (13:00)
[2019-03-01] MEDS: CEPHALEXIN 250 MG CAPSULE PO SCH ×2 (17:17→21:07)
[2019-03-01] MEDS: LACTOBACILLUS RHAMNOSUS GG 1 CAPSULE. PO SCH (21:09)
--- NOTE | 2019-03-01 23:45 | PN ---
DATE: 03/01/2019 SUBJECTIVE: The patient is sitting comfortably in her recliner, in no apparent respiratory distress. She continued to be in atrial fibrillation with rapid ventricular response despite adjustment to her medication. She is now on diltiazem 120 mg twice a day, metoprolol 37.5 mg every 6 hours, amiodarone 400 mg daily and apixaban 5 mg twice a day. Her heart rate is not controlled, will convert to sinus rhythm. She will be transferred to [facility] for elective cardioversion tomorrow. PHYSICAL EXAMINATION: GENERAL: When I saw her this afternoon, she looked well and was clearly in no apparent respiratory distress. No pallor, jaundice, cyanosis, or thyromegaly. No jugular venous distension. No lower limb edema. VITAL SIGNS: Her heart rate was 132, blood pressure is 127/77, her temperature was 98, respiratory rate was 22 and oxygen saturation was 96%. HEAD, EYES, EARS, NOSE AND THROAT: Showed normocephalic, atraumatic. NECK: Supple. HEART: Showed normal first and second heart sounds. No gallop, rub or murmur. CHEST: Clear to auscultation. No crepitation or rhonchi. ABDOMEN: Distended, soft, nontender. NEUROLOGIC: She is awake, alert, responding appropriately. All cranial nerves are intact. She moves extremities without difficulty. She normally is able to ambulate without assistance or assistive devices. Her intake over the last 24 hours was 1625, no output was recorded. LABORATORY DATA: As of this morning showed a serum sodium 139, potassium 3.8, chloride 103, bicarbonate 26, anion gap of 10, BUN 22, creatinine 0.9, estimated GFR was 60 mL per minute. Her glucose 95. Lactic acid was 2.3, came down to 1.1. Her calcium was 9.3, magnesium was 1.8. Total bilirubin, AST, ALT, alkaline phosphatase were normal. Total protein 7, albumin 3.4. Her white cell count was 9300, hemoglobin 14, hematocrit 41, MCV 90 and platelet count 231,000. ASSESSMENT: Refractory atrial fibrillation with rapid ventricular response, hypertension, diastolic heart failure, acute on chronic mitral stenosis. She has also had bronchial asthma, morbid obesity, obstructive sleep apnea, on BiPAP. PLAN: As recommended by the electric clock mechanic to increase her metoprolol to 37.5 mg every 6 hours, diltiazem 120 mg twice a day, and amiodarone 400 mg daily. She did spike a temperature yesterday, we did panculture her. I will start her on Keflex for left upper extremity cellulitis. BERTHA LESTER MD DR: NEETU/cindi JOB#: [id number] / [id number]
[2019-03-02] VITALS (9 sets, daily range): BP systolic 83–134; BP diastolic 56–81
[2019-03-02] MEDS: METOPROLOL TART IMMED RELEASE 25 MG TABLET PO SCH ×3 (01:11→12:00)
[2019-03-02 06:29] LABS: BASO # 0.1 x10^3/uL (0.0-0.2); BASO % 1 % (0-3); EOS # 0.4 x10^3/uL (0.0-0.7); EOS % 5 % (0-3); HEMATOCRIT 42.2 % (36.0-47.0); HEMOGLOBIN 14.3 g/dL (12.0-15.5); LYMPH # 2.6 x10^3/uL (1.0-4.8); LYMPH % 30 % (24-48); MEAN CORPUSCULAR HEMOGLOBIN 30 pg (25-35); MEAN CORPUSCULAR HGB CONC 34 g/dL (31-37); MEAN CORPUSCULAR VOLUME 90 fL (79-100); MONO # 1.2 x10^3/uL (0.0-1.1); MONO % 13 % (0-9); NEUT # 4.4 x10^3uL (1.8-7.7); NEUT % 50 % (31-73); PLATELET COUNT 229 x10^3/uL (140-400); RED BLOOD COUNT 4.71 x10^6/uL (3.50-5.40); RED CELL DISTRIBUTION WIDTH 13.9 % (11.5-14.5); WHITE BLOOD COUNT 8.7 x10^3/uL (4.0-11.0)
[2019-03-02 06:44] LABS: ALBUMIN 3.1 g/dL (3.4-5.0); ALBUMIN/GLOBULIN RATIO 0.8 (1.0-1.7); CALCIUM 8.8 mg/dL (8.5-10.1); CREATININE 0.9 mg/dL (0.6-1.0); GFR 59.8; POTASSIUM 3.1 mmol/L (3.5-5.1); TOTAL BILIRUBIN 0.5 mg/dL (0.2-1.0); TOTAL PROTEIN 6.9 g/dL (6.4-8.2)
--- NOTE | 2019-03-02 08:59 | PDOC ---
PROGRESS NOTES Diagnosis Problem Problems Medical Problems: (1) Atrial fibrillation with rapid ventricular response Status: Acute Assessment Problems Medical Problems: (1) Atrial fibrillation with rapid ventricular response Status: Acute Impression: 1. Refractory afib with RVR. - continue cardizem, metoprolol and amiodarone. Eliquis for stroke prophylaxis. Converted to sinus rhythm at 0841 am. outpatient MCT for AF burden. 2. HTN - controlled. 3. Diastolic HF - acute on chronic - continue current medical therapy. diuretics currently deferred due to borderline blood pressures. Maintaining Sao2. 4. Mitral stenosis. Subjective no chest pain, + dyspnea on exertion, converted to sinus this am. + lightheadedness with cough, correlated with 4 sec R-R followed by sinus rhythm. Objective Vital Signs Date Time Temp Pulse Resp B/P (MAP) Pulse Ox O2 Delivery O2 Flow Rate FiO2 03/02/19 08:03 Room Air 2.0 03/02/19 07:48 117 18 117/68 (84) 96 03/01/19 19:00 98.6 Intake and Output 03/02/19 07:00 Intake Total 930 ml Balance 930 ml Intake Oral 930 ml # Voids 7 Physical Exam gen: awake, alert, NAD CV IRR-> RRR, no gallops, clicks or rubs Lungs: basilar crackles, left clears with cough, few scattered right base remaining abd: soft, non tender, +bowel sounds ext: 2+ edema Review of Relevant I have reviewed the following items kat (where applicable) has been applied. Labs Laboratory Tests Test 02/28/19 19:50 02/28/19 21:32 03/01/19 00:03 03/02/19 05:42 White Blood Count 9.3 x10^3/uL (4.0-11.0) 8.7 x10^3/uL (4.0-11.0) Red Blood Count 4.62 x10^6/uL (3.50-5.40) 4.71 x10^6/uL (3.50-5.40) Hemoglobin 13.9 g/dL (12.0-15.5) 14.3 g/dL (12.0-15.5) Hematocrit 41.4 % (36.0-47.0) 42.2 % (36.0-47.0) Mean Corpuscular Volume 90 fL (79-100) 90 fL (79-100) Mean Corpuscular Hemoglobin 30 pg (25-35) 30 pg (25-35) Mean Corpuscular Hemoglobin Concent 34 g/dL (31-37) 34 g/dL (31-37) Red Cell Distribution Width 13.9 % (11.5-14.5) 13.9 % (11.5-14.5) Platelet Count 231 x10^3/uL (140-400) 229 x10^3/uL (140-400) Neutrophils (%) (Auto) 55 % (31-73) 50 % (31-73) Lymphocytes (%) (Auto) 25 % (24-48) 30 % (24-48) Monocytes (%) (Auto) 14 % (0-9) 13 % (0-9) Eosinophils (%) (Auto) 5 % (0-3) 5 % (0-3) Basophils (%) (Auto) 1 % (0-3) 1 % (0-3) Neutrophils # (Auto) 5.2 x10^3uL (1.8-7.7) 4.4 x10^3uL (1.8-7.7) Lymphocytes # (Auto) 2.3 x10^3/uL (1.0-4.8) 2.6 x10^3/uL (1.0-4.8) Monocytes # (Auto) 1.3 x10^3/uL (0.0-1.1) 1.2 x10^3/uL (0.0-1.1) Eosinophils # (Auto) 0.4 x10^3/uL (0.0-0.7) 0.4 x10^3/uL (0.0-0.7) Basophils # (Auto) 0.1 x10^3/uL (0.0-0.2) 0.1 x10^3/uL (0.0-0.2) Lactic Acid Level 2.3 mmol/L (0.4-2.0) 1.1 mmol/L (0.4-2.0) Urine Collection Type Void Urine Color Keiko Urine Clarity Turbid Urine pH 7.0 Urine Specific Tappen 1.020 Urine Protein Neg (NEG-TRACE) Urine Glucose (UA) Neg mg/dL (NEG) Urine Ketones (Stick) Neg mg/dL (NEG) Urine Blood Neg (NEG) Urine Nitrite Pos (NEG) Urine Bilirubin Neg (NEG) Urine Urobilinogen Dipstick 2 mg/dL (0.2 mg/dL) Urine Leukocyte Esterase Small (NEG) Urine RBC 1-2 /HPF (0-2) Urine WBC 11-20 /HPF (0-4) Urine Squamous Epithelial Cells Mod /LPF Urine Bacteria Mod /HPF (0-FEW) Sodium Level 139 mmol/L (136-145) Potassium Level 3.1 mmol/L (3.5-5.1) Chloride Level 102 mmol/L (98-107) Carbon Dioxide Level 26 mmol/L (21-32) Anion Gap 11 (6-14) Blood Urea Nitrogen 21 mg/dL (7-20) Creatinine 0.9 mg/dL (0.6-1.0) Estimated GFR (Cockcroft-Gault) 59.8 BUN/Creatinine Ratio 23 (6-20) Glucose Level 94 mg/dL (70-99) Calcium Level 8.8 mg/dL (8.5-10.1) Total Bilirubin 0.5 mg/dL (0.2-1.0) Aspartate Amino Transf (AST/SGOT) 16 U/L (15-37) Alanine Aminotransferase (ALT/SGPT) 19 U/L (14-59) Alkaline Phosphatase 88 U/L (46-116) Total Protein 6.9 g/dL (6.4-8.2) Albumin 3.1 g/dL (3.4-5.0) Albumin/Globulin Ratio 0.8 (1.0-1.7) Microbiology 02/28/19 Blood Culture - Preliminary, Resulted NO GROWTH AFTER 1 DAY... Medications Current Medications Diltiazem HCl (Cardizem Iv Push) 10 mg 1X ONCE IVP Last administered on at 13:09; Start 02/26/19 at 13:00; Stop 02/26/19 at 13:01; Status DC Aspirin (Children'S Aspirin) 324 mg 1X ONCE PO Last administered on 02/26/19at 13:07; Start 02/26/19 at 13:00; Stop 02/26/19 at 13:01; Status DC Diltiazem HCl 125 mg/Dextrose 125 ml @ 5 mls/hr 1X ONCE IV Last administered on 02/26/19at 13:19; Start 02/26/19 at 13:00; Stop 02/27/19 at 07:11; Status DC Dextrose 100 ml @ As Directed STK-MED ONCE IV ; Start 02/26/19 at 13:14; Stop 02/26/19 at 13:15; Status DC Diltiazem HCl (Cardizem) 125 mg STK-MED ONCE IV ; Start 02/26/19 at 13:14; Stop 02/26/19 at 13:15; Status DC Potassium Chloride (KCl Oral Soln) 40 meq 1X ONCE PO Last administered on 02/26at 14:00; Start 02/26/19 at 14:15; Stop 02/26/19 at 14:16; Status DC Ondansetron HCl (Zofran) 4 mg PRN Q4HRS PRN IV NAUSEA/VOMITING; Start 02/26/19 at 14:45; Stop 02/27/19 at 14:44; Status DC Acetaminophen (Tylenol) 650 mg PRN Q4HRS PRN PO FEVER Last administered on 02/27at 01:17; Start 02/26/19 at 14:45; Stop 02/27/19 at 14:44; Status DC Nitroglycerin (Nitrostat) 0.4 mg PRN Q5MIN PRN SL CHEST PAIN; Start 02/26/19 at 14:45; Stop 02/27/19 at 14:44; Status DC Albuterol/ Ipratropium (Duoneb) 3 ml RTQID NEB Last administered on 02/27/19at 09:13; Start 02/26/19 at 16:00; Stop 02/27/19 at 14:44; Status DC Enoxaparin Sodium (Lovenox 80mg Syringe) 80 mg 1X ONCE SQ Last administered on 02/26/19at 15:01; Start 02/26/19 at 15:00; Stop 02/26/19 at 15:01; Status DC Potassium Chloride (KCl Oral Soln) 40 meq Q2H PO Last administered on at 19:23; Start 02/26/19 at 17:15; Stop 02/26/19 at 19:16; Status DC Diltiazem HCl 125 mg/Dextrose 125 ml @ 5 mls/hr CONT PRN IV SEE I/O RECORD Last administered on 02/27/19 13:59; Start 02/26/19 at 22:30 Potassium Chloride (KCl Oral Soln) 40 meq Q1HR PO Last administered on 11:01; Start 02/27/19 at 07:00; Stop 02/27/19 at 10:01; Status DC Digoxin (Lanoxin) 500 mcg 1X ONCE IV Last administered on 02/27/19 09:35; Start 02/27/19 at 09:50; Stop 02/27/19 at 09:51; Status DC Digoxin (Lanoxin) 500 mcg STK-MED ONCE .ROUTE ; Start 02/27/19 at 09:30; Stop at 09:31; Status DC Apixaban (Eliquis) 5 mg BID PO Last administered on 03/01/19at 21:09; Start at 10:30 Clonazepam (KlonoPIN) 0.25 mg PRN BID PRN PO ANXIETY / AGITATION Last administered on 02/27/19at 10:59; Start 02/27/19 at 10:45 Albuterol/ Ipratropium (Duoneb) 3 ml PRN QID PRN NEB soa; Start 02/27/19 at 14: 45 Diltiazem HCl (Cardizem 24hr Cd) 120 mg 1X ONCE PO Last administered on 19:41; Start 02/27/19 at 19:30; Stop 02/27/19 at 19:31; Status DC Diltiazem HCl (Cardizem 24hr Cd) 120 mg DAILY PO Last administered on at 08:33; Start 02/28/19 at 09:00; Stop 03/01/19 at 12:47; Status DC Amiodarone HCl 150 mg/Dextrose 103 ml @ 618 mls/hr 1X ONCE IVP Last administered on 02/27/19 19:42; Start 02/27/19 at 19:30; Stop 02/27/19 at 19:39 ; Status DC Amiodarone HCl 900 mg/Dextrose 518 ml @ 0 mls/hr 1X ONCE IV Last administered on 02/27/19 19:42; Start 02/27/19 at 19:30; Stop 02/27/19 at 19:31; Status DC Amiodarone HCl (Cordarone) 400 mg DAILY PO Last administered on 03/01/19at 08:32 ; Start 02/28/19 at 09:45 Digoxin (Lanoxin) 500 mcg 1X ONCE IV Last administered on 02/28/19at 16:58; Start 02/28/19 at 16:45; Stop 02/28/19 at 16:47; Status DC Acetaminophen (Tylenol) 650 mg PRN Q4HRS PRN PO PAIN / TEMP Last administered on 02/28/19at 19:40; Start 02/28/19 at 19:30 Metoprolol Tartrate (Lopressor Vial) 5 mg 1X ONCE IV Last administered on 02/28at 21:44; Start 02/28/19 at 21:30; Stop 02/28/19 at 21:32; Status DC Metoprolol Tartrate (Lopressor) 25 mg 1X ONCE PO Last administered on at 21:45; Start 02/28/19 at 21:30; Stop 02/28/19 at 21:32; Status DC Metoprolol Tartrate (Lopressor) 25 mg Q6HRS PO Last administered on 03/01/19at 12:32; Start 03/01/19 at 00:00; Stop 03/01/19 at 12:47; Status DC Diltiazem HCl (Cardizem 24hr Cd) 120 mg BID PO Last administered on 03/01/19at 21:09; Start 03/01/19 at 21:00 Metoprolol Tartrate (Lopressor) 37.5 mg Q6HRS PO Last administered on at 05:48; Start 03/01/19 at 18:00 Metoprolol Tartrate (Lopressor) 12.5 mg 1X ONCE PO Last administered on at 13:11; Start 03/01/19 at 13:00; Stop 03/01/19 at 13:02; Status DC Cephalexin HCl (Keflex) 500 mg QID PO Last administered on 03/01/19at 21:07; Start 03/01/19 at 17:00 Lactobacillus Rhamnosus (Culturelle) 1 cap BID PO Last administered on at 21:09; Start 03/01/19 at 21:00 Active Scripts Active Reported Mirtazapine 30 Mg Tablet 1 Tab PO PRN QHS Mirtazapine 15 Mg Tablet 1 Tab PO PRN QHS PRN Klor-Con M20 (Potassium Chloride) 20 Meq Tab.er.prt 2 Tab PO DAILY Atenolol-Chlorthalidone 100-25 (Atenolol/Chlorthalidone) 1 Each Tablet 1 Tab PO DAILY Lasix (Furosemide) 40 Mg Tablet 20 Mg PO DAILY Vitals/I & O Vital Sign - Last 24 Hours 03/01/19 03/01/19 03/01/19 03/01/19 09:20 10:20 11:20 12:00 Temp 98.0 Pulse 132 137 127 Resp B/P (MAP) 119/72 (88) 129/81 (97) 110/78 (89) Pulse Ox 95 94 95 O2 Delivery Room Air Room Air Room Air Room Air 03/01/19 03/01/19 03/01/19 03/01/19 12:32 12:34 13:11 13:20 Pulse 127 132 132 136 Resp B/P (MAP) 110/78 127/77 (94) 127/77 119/77 (91) Pulse Ox 96 95 O2 Delivery Room Air Room Air 03/01/19 03/01/19 03/01/19 03/01/19 14:39 15:30 16:00 17:20 Pulse 121 134 122 Resp B/P (MAP) 137/83 (101) 106/76 (86) 136/78 (97) Pulse Ox 93 94 95 O2 Delivery Room Air Room Air Room Air Room Air 03/01/19 03/01/19 03/01/19 03/01/19 18:00 18:27 18:29 19:00 Temp 98.6 Pulse 122 110 122 Resp B/P (MAP) 136/78 130/81 (97) 129/76 (93) Pulse Ox 92 95 O2 Delivery Room Air Room Air Room Air 03/01/19 03/01/19 03/01/19 03/01/19 19:54 20:00 21:00 21:09 Pulse 126 120 123 Resp 18 18 B/P (MAP) 134/68 (90) 124/76 (92) 134/68 Pulse Ox 93 92 O2 Delivery Room Air Room Air Room Air 03/01/19 03/01/19 03/01/19 03/02/19 22:00 23:00 23:59 00:00 Pulse 110 130 120 Resp 18 20 20 B/P (MAP) 117/62 (80) 112/66 (81) 111/68 (82) Pulse Ox 93 95 91 O2 Delivery Room Air Room Air Room Air Room Air 03/02/19 03/02/19 03/02/19 03/02/19 01:00 01:11 03:00 04:00 Pulse 120 91 96 96 Resp 16 16 16 B/P (MAP) 101/62 (75) 111/68 119/58 (78) 83/56 (65) Pulse Ox 95 95 95 O2 Delivery Room Air 03/02/19 03/02/19 03/02/19 03/02/19 04:24 05:32 05:48 07:48 Pulse 99 87 117 Resp 16 18 B/P (MAP) 122/81 (95) 122/81 117/68 (84) Pulse Ox 95 96 O2 Delivery Room Air BiPAP/CPAP Room Air 03/02/19 08:03 O2 Delivery Room Air O2 Flow Rate 2.0 Intake and Output 03/01/19 03/01/19 03/02/19 15:00 23:00 07:00 Intake Total 360 ml 520 ml 50 ml Balance 360 ml 520 ml 50 ml JALEEL MASSEY GIRLS SWIMMING COACH Mar 02, 2019 08:58
[2019-03-02] MEDS ORDERED: MAGNESIUM SULFATE 2GM 50 ML IV PRN (09:00)
[2019-03-02] MEDS ORDERED: POTASSIUM CHLORIDE 20MEQ 100 ML IV PRN ×3 (09:15→10:00)
[2019-03-02] MEDS ORDERED: POTASSIUM CHLORIDE 20 MEQ TABLET.ER. PO PRN ×2 (09:15)
[2019-03-02] MEDS ORDERED: POTASSIUM CHLORIDE 20MEQ 100 ML IV SCH (09:30)
[2019-03-02] MEDS: LACTOBACILLUS RHAMNOSUS GG 1 CAPSULE. PO SCH (09:36)
[2019-03-02] MEDS: APIXABAN 5 MG TABLET. PO SCH (09:37)
[2019-03-02] MEDS: CEPHALEXIN 250 MG CAPSULE PO SCH ×2 (09:37→13:00)
[2019-03-02] MEDS: AMIODARONE HCL 200 MG TABLET PO SCH (09:37)
[2019-03-02] MEDS ORDERED: POTASSIUM CHLORIDE 20 MEQ TABLET.ER. PO ONE (10:00)
[2019-03-02] MEDS ORDERED: CLON0.5T11 PO (12:06)
[2019-03-02] MEDS ORDERED: METO50TA6 PO (12:06)
[2019-03-02] MEDS ORDERED: DILT120C85 PO (12:06)
[2019-03-02] MEDS ORDERED: CEPH-264 PO (12:06)
[2019-03-02] MEDS ORDERED: APIX5TAB3 PO (12:06)
[2019-03-02] MEDS ORDERED: AMIO200T4 PO (12:06)
--- NOTE | 2019-03-02 12:39 | DS ---
DATE OF DISCHARGE: 03/02/2019 HOSPITAL COURSE: The patient is an 84-year-old female patient, who was admitted through the Emergency Room on 02/26/2019 with a complaint of shortness of breath that started about 5 days ago. She denied any chest pain or palpitation. Denied any orthopnea or nocturnal dyspnea, however, she has been at adjustable bed because of gastroesophageal reflux disease, she always sleeps with her head of the bed up. She does have shortness of breath at rest. She was seen at her primary care physician who noted that her EKG was significantly different and was transferred to [facility] where she was diagnosed with atrial fibrillation, rapid ventricular response and was admitted to control the heart rate and start her blood thinner to prevent stroke. We did consult the Cardiology team. Her atrial fibrillation proved to be refractory and required multiple modalities of treatment. Initially, she was on Cardizem drip without much improvement. We added amiodarone drip and then orally and metoprolol at 37.5 mg every 6 hours. She was started also on apixaban and finally she converted this morning to sinus rhythm. When I saw her this morning, she was feeling well. Her heart rate is definitely well controlled. She is in sinus rhythm. Unfortunately, she had her IV line has ___ and developed cellulitis of left arm for which we started her on Keflex and as she remained hemodynamically stable, her heart rate is much better controlled, A decision was made to discharge her home with home health to continue the process of physical and occupational therapy. She was also would be discharged with a satellite project site monitor and to follow with the Cardiology team. PHYSICAL EXAMINATION: GENERAL: When I saw her this morning, she looked well and was clearly in no apparent respiratory distress. No pallor, jaundice, cyanosis, or thyromegaly. No jugular venous distention. Mild bilateral lower limb edema. VITAL SIGNS: Her heart rate was 78, blood pressure 134/58, temperature was 98.6, respiratory rate was 16. Her oxygen saturation was 95% on room air. HEAD, EYES, EARS, NOSE, AND THROAT: Normocephalic, atraumatic. NECK: Supple. HEART: Showed normal first and second heart sounds. No gallop, rub, or murmur. CHEST: Clear to auscultation. No crepitation or rhonchi. ABDOMEN: Distended, soft, nontender. NEUROLOGIC: She is awake, alert, responding appropriately. All cranial nerves intact. She moves extremities without difficulty. She ambulates without assistance or assistive devices. Her intake over the last 24 hours was incompletely recorded. LABORATORY DATA: Her lab work this morning showed a white cell count 8700, hemoglobin 14, hematocrit 42, MCV 90, platelet count 229,000. Her chemistry showed a serum sodium 139, potassium 3.1, chloride 102, bicarbonate 26, anion gap of 11, BUN 21, creatinine 0.9, estimated GFR was 59 mL per minute. Her glucose was 94, calcium was 8.8, and total bilirubin, AST, ALT, alkaline phosphatase were normal. Total protein was 6.9, albumin 3.1. Her prothrombin time was 11.5, INR 1.2. Urinalysis was mostly unremarkable. Nasal screen for MRSA by PCR was negative. DISCHARGE MEDICATIONS: She was discharged home to continue on furosemide 20 mg once a day, mirtazapine ____ mg once a day. She was also discharged on metoprolol tartrate 50 mg twice a day, diltiazem CD 120 mg twice a day, cephalexin 500 mg 4 times a day, amiodarone 400 mg once a day, clonazepam 0.5 mg twice a day, and apixaban 5 mg twice a day. FINAL DISCHARGE DIAGNOSES: 1. Refractory atrial fibrillation, finally has responded, on to Cardizem, metoprolol and amiodarone. She also was discharged on Eliquis for stroke prevention. She will have outpatient satellite project site monitor. 2. Hypertension, well controlled. 3. Diastolic heart failure, acute on chronic. She is on Lasix 20 mg once a day. 4. Mitral stenosis. BERTHA LESTER MD DR: NEETU/cindi JOB#: [id number] / [id number]
== END 2019-03-02 13:20 | disposition home health service (06) | DRG 308 ==
LOC: ER 12:19 → ICU 15:34
PROVIDERS: ADMIT Internal Medicine; ATTEND Internal Medicine
PROC: 5A09357 Assistance with Respiratory Ventilation, Less than 24 Consecutive Hours, Continuous Positive Airway Pressure (ICD-10-PCS; principal; 2019-02-27)
PROC: 5A09357 Assistance with Respiratory Ventilation, Less than 24 Consecutive Hours, Continuous Positive Airway Pressure (ICD-10-PCS; 2019-02-28)
PROC: 5A09357 Assistance with Respiratory Ventilation, Less than 24 Consecutive Hours, Continuous Positive Airway Pressure (ICD-10-PCS; 2019-03-01)
PROC: 5A09357 Assistance with Respiratory Ventilation, Less than 24 Consecutive Hours, Continuous Positive Airway Pressure (ICD-10-PCS; 2019-03-02)
DX: I48.91 Unspecified atrial fibrillation (principal); I50.33 Acute on chronic diastolic (congestive) heart failure; N39.0 Urinary tract infection, site not specified; L03.114 Cellulitis of left upper limb; I11.0 Hypertensive heart disease with heart failure; M19.90 Unspecified osteoarthritis, unspecified site; E66.01 Morbid (severe) obesity due to excess calories; E87.6 Hypokalemia; F41.9 Anxiety disorder, unspecified; I05.0 Rheumatic mitral stenosis; G47.33 Obstructive sleep apnea (adult) (pediatric); J45.909 Unspecified asthma, uncomplicated; K21.9 Gastro-esophageal reflux disease without esophagitis; K52.9 Noninfective gastroenteritis and colitis, unspecified; Z79.01 Long term (current) use of anticoagulants; Z68.34 Body mass index [BMI] 34.0-34.9, adult; Z79.899 Other long term (current) drug therapy; Z82.3 Family history of stroke; Z82.49 Family history of ischemic heart disease and other diseases of the circulatory system; Z83.3 Family history of diabetes mellitus; Z87.440 Personal history of urinary (tract) infections; Z90.49 Acquired absence of other specified parts of digestive tract; Z90.710 Acquired absence of both cervix and uterus; Z98.41 Cataract extraction status, right eye; Z98.42 Cataract extraction status, left eye; Z90.722 Acquired absence of ovaries, bilateral; Z88.2 Allergy status to sulfonamides; Z88.8 Allergy status to other drugs, medicaments and biological substances
CPT/HCPCS: 36415; 71045; 80053; 80061; 81001; 83605; 83690; 83735; 83880; 84132; 84443; 84484; 85025; 85610; 87040; 87086; 87186; 87641; 93005; 93306; 94640; 96365; 96366; 96372; 96376; J0282; J1160; J1650; J3490; J7620; 99291-25

== ENCOUNTER → 2020-07-05 | Outpatient (CLI) | payer MEDICARE ==
[2019-03-02 11:04] VITALS: BP 134/58
[~2020-07-05] MED LIST changes: +AMIO200T4 PO; +APIX5TAB3 PO; +CEPH-264 PO; +CLON0.5T4 PO; +DILT120C99 PO; +METO50TA6 PO; +MIRT15TA3 PO; +MIRT30TA3 PO
--- NOTE | 2020-07-06 09:28 | CARD ---
MR#: [id number] Date of Study: 07/05/2020 Ordering Physician: FERNANDEZ HUBER, Referring Physician: FERNANDEZ HUBER, Tech: Yaritza Lopez APPROVED REPORT EXAM: Two-dimensional and M-mode echocardiogram with Doppler and color Doppler. Other Information Quality : AverageHR: 69bpm INDICATION Mitral Valve Disease Surgery/Intervention Pacemaker: Date: 2018 RISK FACTORS Hypertension 2D DIMENSIONS Left Atrium(2D)3.7 (1.6-4.0cm)IVSd1.0 (0.7-1.1cm) Aortic Root(2D)3.1 (2.0-3.7cm)LVDd4.7 (3.9-5.9cm) LVOT Diameter2.0 (1.8-2.4cm)PWd1.0 (0.7-1.1cm) LVDs2.6 (2.5-4.0cm)FS (%) 45.3 % SV80.1 mlLVEF(%)76.6 (>50%) Aortic Valve AoV Peak Yash.146.2cm/sAoV VTI37.7cm AO Peak GR.8.5mmHgLVOT Peak Yash.140.1cm/s LVOT VTI 37.47cmAO Mean GR.5mmHg BUD (VMAX)3.03ui0LEM (VTI)3.13cm2 AI P 1/2 Xntu116ti Mitral Valve MV E Cpyshlts806.8cm/sMV E Peak Gr.9mmHg MV DECEL [id number] A Ularugxd659.2cm/s MV E Mean Gr.5mmHgE/A Ratio1.3 Pulmonary Valve PV Peak Nhxuhhqr08.9cm/sPV Peak Grad.2mmHg Tricuspid Valve TR P. Ozxxnwcw302cf/sRAP KJEJMWOE8euYr TR Peak Gr.06hxIjWGUD91vwCm Pulmonary Vein S1 Zozdzbbj94.8cm/sD2 Qnflcelm19.3cm/s LEFT VENTRICLE The left ventricle is normal size. There is normal left ventricular wall thickness. The left ventricu lar systolic function is normal. The Ejection Fraction is 60-65%. There is normal LV segmental wall m otion. Transmitral Doppler flow pattern is Grade II-pseudonormal filling dynamics. RIGHT VENTRICLE The right ventricle is normal size. There is normal right ventricular wall thickness. The right ventr icular systolic function is normal. There is a pacemaker lead in the right ventricle. ATRIA The left atrium size is normal. The right atrium size is normal. The interatrial septum is intact wit h no evidence for an atrial septal defect or patent foramen ovale as noted on 2-D or Doppler imaging. AORTIC VALVE The aortic valve is thickened but opens well. Doppler and Color Flow revealed trace to mild aortic re gurgitation. There is no significant aortic valvular stenosis. Calculated aortic valve area is 3.4 cm 2 with maximum pressure gradient of 9 mmHg and mean pressure gradient of 5 mmHg. MITRAL VALVE The mitral valve is mildly to moderately calcified and displays decreased opening. There is no eviden ce of mitral valve prolapse. Moderate mitral valve stenosis with mean pressure gradient of 6 mmHg. Do ppler and Color Flow revealed mild mitral regurgitation. TRICUSPID VALVE The tricuspid valve is normal in structure and function. Doppler and Color Flow revealed trace tricus pid regurgitation with an estimated PAP of 35 mmHg. There is no tricuspid valve stenosis. PULMONIC VALVE The pulmonary valve is normal in structure and function. Doppler and Color Flow revealed trace to mil d pulmonic valvular regurgitation. GREAT VESSELS The aortic root is normal in size. The IVC is normal in size and collapses >50% with inspiration. PERICARDIAL EFFUSION There is no evidence of significant pericardial effusion. Critical Notification Critical Value: No <Conclusion> The left ventricular systolic function is normal. The Ejection Fraction is 60-65%. There is normal LV segmental wall motion. Transmitral Doppler flow pattern is Grade II-pseudonormal filling dynamics. There is a pacemaker lead in the right atrium and right ventricle. Trace to mild aortic regurgitation. Moderate mitral valve stenosis with mean pressure gradient of 6 mmHg. Mild mitral regurgitation. Trace tricuspid regurgitation with an estimated PAP of 35 mmHg. There is no evidence of significant pericardial effusion. Signed by : Emery Donis, Electronically Approved : 07/06/2020 09:28:01
== END | disposition home or self-care (01) ==
LOC: ECHO 08:33
PROVIDERS: ATTEND Internal Medicine Cardiovascular Disease
DX: I08.8 Other rheumatic multiple valve diseases (principal)
CPT/HCPCS: 93306

== ENCOUNTER → 2021-09-26 | Outpatient (CLI) | payer MEDICARE ==
[2019-03-02 11:04] VITALS: BP 134/58
[~2021-09-26] MED LIST changes: -AMIO200T4 PO; +AMIO200T54 PO; +MIRT-7 PO; +MIRT-8 PO; -MIRT15TA3 PO; -MIRT30TA3 PO; +POTA-121 PO; -POTA20TA4 PO
--- NOTE | 2021-09-26 19:53 | CARD ---
MR#: [id number] Date of Study: 09/26/2021 Ordering Physician: FERNANDEZ HUBER, Referring Physician: FERNANDEZ HUBER, Tech: Darlin Jessica [facility] APPROVED REPORT EXAM: Two-dimensional and M-mode echocardiogram with Doppler and color Doppler. Other Information Quality : AverageHR: 75bpm Rhythm : Pacemaker INDICATION Mitral Valve Disease Surgery/Intervention Pacemaker: Date: 2018 RISK FACTORS Hypertension Asthma 2D DIMENSIONS RVDd3.5 (2.9-3.5cm)Left Atrium(2D)3.5 (1.6-4.0cm) IVSd1.3 (0.7-1.1cm)Aortic Root(2D)3.1 (2.0-3.7cm) LVDd4.0 (3.9-5.9cm)LVOT Diameter2.0 (1.8-2.4cm) PWd1.3 (0.7-1.1cm)LVDs2.2 (2.5-4.0cm) FS (%) 46.5 %SV55.9 ml LVEF(%)78.4 (>50%) Aortic Valve AoV Peak Yash.143.4cm/sAoV VTI34.3cm AO Peak GR.8.2mmHgLVOT Peak Yash.117.9cm/s LVOT VTI 32.04cmAO Mean GR.5mmHg BUD (VMAX)2.11hd4LCA (VTI)2.96cm2 AI P 1/2 Wwjv323oy Mitral Valve MV E Lfilcckg075.4cm/sMV E Peak Gr.8mmHg MV DECEL EXIL605coWC A Fzlxpkqa507.3cm/s MV E Mean Gr.5mmHgMV ZGK77mg E/A Ratio0.9MVA (PHT)4.05cm2 Pulmonary Valve PV Peak Xtyfnhlr43.4cm/sPV Peak Grad.2mmHg Tricuspid Valve TR P. Bulqhmft491gl/sRAP KQNFLHLM8dwVd TR Peak Gr.06shRxCWHC37nmAz LEFT VENTRICLE The left ventricle is normal size. There is moderate concentric left ventricular hypertrophy. The lef t ventricular systolic function is normal and the ejection fraction is within normal range. The Eject ion Fraction is 65-70%. There is normal LV segmental wall motion. Tissue Doppler imaging reveals mode rate left ventricular diastolic dysfunction. RIGHT VENTRICLE The right ventricle is normal size. There is normal right ventricular wall thickness. The right ventr icular systolic function is normal. There is a pacemaker lead in the right ventricle. ATRIA The left atrium is moderately dilated. The right atrium is borderline dilated. The interatrial septum is intact with no evidence for an atrial septal defect or patent foramen ovale as noted on 2-D or Do ppler imaging. AORTIC VALVE The aortic valve is calcified and trileaflet with restricted leaflet motion. Doppler and Color Flow r evealed trace aortic regurgitation. There is no significant aortic valvular stenosis. Calculated aort ic valve area is 2.8 cm2 with maximum pressure gradient of 9 mmHg and mean pressure gradient of 5 mmH g. MITRAL VALVE The mitral valve is mildly to moderately thickened. There is no evidence of mitral valve prolapse. Th ere is moderate mitral valve stenosis with a mean gradient of 5.10 mmHg. Doppler and Color-flow revea led trace mitral regurgitation. TRICUSPID VALVE The tricuspid valve is normal in structure and function. Doppler and Color Flow revealed trace tricus pid regurgitation with an estimated PAP of 37 mmHg. There is no tricuspid valve stenosis. PULMONIC VALVE Doppler and Color Flow revealed trace pulmonic valvular regurgitation. There is no pulmonic valvular stenosis. GREAT VESSELS The aortic root is normal in size. The ascending aorta is mildly dilated measuring 3.5 cm. The IVC is dilated. PERICARDIAL EFFUSION There is no evidence of significant pericardial effusion. Critical Notification Critical Value: No <Conclusion> The left ventricular systolic function is normal and the ejection fraction is within normal range. Th e Ejection Fraction is 65-70%. There is normal LV segmental wall motion. There is a pacemaker lead in the right ventricle. There is moderate mitral valve stenosis with a mean gradient of 5.10 mmHg. The ascending aorta is mildly dilated measuring 3.5 cm. Signed by : Fernandez Huber, Electronically Approved : 09/26/2021 19:53:33
== END ==
LOC: ECHO 09:44
PROVIDERS: ATTEND Internal Medicine Cardiovascular Disease
DX: I08.0 Rheumatic disorders of both mitral and aortic valves (principal); I11.9 Hypertensive heart disease without heart failure
CPT/HCPCS: 93306

== ENCOUNTER 2022-03-22 16:44 | Emergency (ER) | payer BC, MEDICARE ==
[~2022-03-22] VITALS: Ht 160 cm; Wt 78.6 kg
--- NOTE | 2022-03-22 17:10 | PHYS DOC ---
Past History Past Medical History: A-Fib, CAD, Hypertension, AR (FLACO TORRES DO) Past Surgical History: Appendectomy, Hysterectomy, Pacemaker, Tonsillectomy (FLACO TORRES DO) Alcohol Use: None Drug Use: None (FLACO TORRES DO) General Adult EDM: Chief Complaint: Fatigue, dyspnea upon exertion, anemia HPI: HPI: Patient is an 87-year-old female who arrives by private vehicle to the emergency department complaining of fatigue with dyspnea on exertion as well as anemia. Patient reports she is felt this way since being discharged from the hospital after being treated for a myocardial infarction. Patient has a history of atrial fibrillation and does take blood thinners because of this. Patient did have stent placement during her most recent hospitalization. Patient states since being released she has not regained her strength. Patient was evaluated by her meter readers supervisor to have blood work obtained and learned that her hemoglobin which was normal at discharge has gradually decreased. The meter readers supervisor reports her hemoglobin went from 12-6.5. Patient reports during this time while she is been fatigued she is not had any pain. She further denies fever, cough or shortness of air at rest. She does report however that she is weak all the time now. She has not noticed any black tarry stools nor she had any bright red blood or hematemesis. She is awake, alert and frail-appearing. (FLACO TORRES DO) Review of Systems: Review of Systems: Constitutional: Reports fatigue and generalized weakness. Denies fever or chills Eyes: Denies change in visual acuity HENT: Denies nasal congestion or sore throat Respiratory: Reports dyspnea upon exertion. Denies cough. Cardiovascular: Denies chest pain or edema GI: Denies abdominal pain, nausea, vomiting, bloody stools or diarrhea : Denies dysuria Musculoskeletal: Denies back pain or joint pain Integument: Denies rash Neurologic: Denies headache, focal weakness or sensory changes Endocrine: Denies polyuria or polydipsia Lymphatic: Denies swollen glands Psychiatric: Denies depression or anxiety (FLACO TORRES DO) Allergies: Allergies: Allergies Coded Allergies Type Severity Reaction Last Updated Verified Sulfa (Sulfonamide Antibiotics) Allergy Severe 06/11/16 Yes celecoxib Allergy Intermediate Hives 06/11/16 Yes (FLACO TORRES DO) Physical Exam: PE: Constitutional: Frail-appearing. Well developed, well nourished, non-toxic appearance. [] HENT: Normocephalic, atraumatic, bilateral external ears normal, oropharynx moist, no oral exudates, nose normal. [] Eyes: PERRLA, EOMI, conjunctiva normal, no discharge. [] Neck: Normal range of motion, no tenderness, supple, no stridor. [] Cardiovascular:Heart rate regular rhythm, no murmur [] Lungs & Thorax: Bilateral breath sounds clear to auscultation [] Abdomen: Bowel sounds normal, soft, no tenderness, no masses, no pulsatile masses. Rectal: External hemorrhoids present. Stool is dark brown without bright red blood. There are no masses appreciated and rectal tone is normal. Skin: Warm, dry, no erythema, no rash. [] Back: No tenderness, no CVA tenderness. [] Extremities: No tenderness, no cyanosis, no clubbing, ROM intact, no edema. [] Neurologic: Alert and oriented X 3, normal motor function, normal sensory function, no focal deficits noted. [] Psychologic: Affect normal, judgement normal, mood normal. [] (FLACO TORRES DO) EKG: EKG: EKG was obtained at 1709 hrs. and reveals a ventricular paced rhythm with a ventricular rate of 69 bpm. There are no acute ST/T wave changes to denote ischemia. There is no STEMI present. [] (FLACO TORRES DO) Radiology/Procedures: Radiology/Procedures: [][place] [address] IMAGING REPORT Signed PATIENT: CARLA SYED V ACCOUNT: [id number] : 1935 LOCATION: ER AGE: 87 SEX: F EXAM STATUS: REG ER ORD. PHYSICIAN: FLACO TORRES DO REASON: dyspnea, CHF, A FIB, CAD PROCEDURE: PORTABLE CHEST 1V EXAM: AP View of the chest DATE: 03/22/2022 5:30 PM INDICATION: Reason: dyspnea, CHF, A FIB, CAD / Spl. Instructions: / History: COMPARISON: 02/28/2019 02/26/2019 05/13/2019 FINDINGS: Cardiac generator pack obscures a portion of the left chest with leads projecting over the right atrium and ventricle. Mild cardiomegaly. Aorta calcifications are seen. Mild background of interstitial prominence appears similar to prior radiographs. No pleural effusion or pneumothorax. IMPRESSION: Grossly stable examination with interstitial prominence, without superimposed airspace opacity. Electronically signed by: Richie Linton MD (03/22/2022 5:39 PM) [facility] DICTATED AND SIGNED BY: RICHIE LINTON MD DATE: 03/22/221736 CC: RAY SINGH MD; FLACO TORRES DO ~ (FLACO TORRES DO) Heart Score: C/O Chest Pain: No Risk Factors: Risk Factors: DM, Current or recent (<one month) smoker, HTN, HLP, family history of CAD, obesity. Risk Scores: Score 0 - 3: 2.5% MACE over next 6 weeks - Discharge Home Score 4 - 6: 20.3% MACE over next 6 weeks - Admit for Clinical Observation Score 7 - 10: 72.7% MACE over next 6 weeks - Early Invasive Strategies (FLACO TORRES DO) Course & Med Decision Making: Course & Med Decision Making The patient arrived by private vehicle and was taken directly to room 4 upon arrival. The patient was interviewed and examined. IV access was obtained and blood was collected. Additionally imaging and EKG were performed which have proven to be unremarkable. At this time blood work is still pending. Rectal exam was performed as well and that result is still pending. Given the patient's history of being acutely anemic in addition to her reported symptoms I do believe she warrants transfer to facility with both critical care as well as GI consultation. I have communicated this to the family and they are in agreement with this. I spoke with Dr. Ham from [facility] and he has agreed to accept the patient in transfer. The patient's care will be transferred to Dr. Lino Arce in the emergency department. She remains nontoxic-appearing and stable. [] (FLACO TORRES DO) Course & Med Decision Making The patient is influenza A positive as well as positive for stool occult. We will transfer the patient to [facility]. She will go by ambulance. (LINO ARCE DO) Dragon Disclaimer: Dragon Disclaimer: This electronic medical record was generated, in whole or in part, using a voice recognition dictation system. (FLACO TORRES DO) Departure Departure: Impression: Primary Impression: Weakness generalized Additional Impressions: History of atrial fibrillation History of coronary artery disease Disposition: 02 SHORT TERM HOSPITAL Condition: STABLE Referrals: RAY SINGH MD (PCP) FLACO TORRES DO March 22, 2022 17:10 LINO ARCE DO March 22, 2022 18:24
--- NOTE | 2022-03-22 17:41 | RAD ---
EXAM: AP View of the chest DATE: 03/22/2022 5:30 PM INDICATION: Reason: dyspnea, CHF, A FIB, CAD / Spl. Instructions: / History: COMPARISON: 02/28/2019 02/26/2019 05/13/2019 FINDINGS: Cardiac generator pack obscures a portion of the left chest with leads projecting over the right atri um and ventricle. Mild cardiomegaly. Aorta calcifications are seen. Mild background of interstitial prominence appears similar to prior radiographs. No pleural effusion or pneumothorax. IMPRESSION: Grossly stable examination with interstitial prominence, without superimposed airspace opacity. Electronically signed by: Richie Woo MD (03/22/2022 5:39 PM) [facility]
[2022-03-22 17:44] LABS: BASO # 0.1 x10^3/uL (0.0-0.2); BASO % 1 % (0-3); EOS # 0.1 x10^3/uL (0.0-0.7); EOS % 1 % (0-3); HEMATOCRIT 21.1 % (36.0-47.0); LYMPH # 1.6 x10^3/uL (1.0-4.8); LYMPH % 14 % (24-48); MEAN CORPUSCULAR HEMOGLOBIN 23 pg (25-35); MEAN CORPUSCULAR HGB CONC 30 g/dL (31-37); MEAN CORPUSCULAR VOLUME 78 fL (79-100); MONO # 1.7 x10^3/uL (0.0-1.1); MONO % 15 % (0-9); NEUT # 7.8 x10^3uL (1.8-7.7); NEUT % 69 % (31-73); PLATELET COUNT 371 x10^3/uL (140-400); RED CELL DISTRIBUTION WIDTH 19.4 % (11.5-14.5); WHITE BLOOD COUNT 11.4 x10^3/uL (4.0-11.0)
[2022-03-22 17:49] LABS: CALCIUM 8.4 mg/dL (8.5-10.1); GFR 52.6; POTASSIUM 3.7 mmol/L (3.5-5.1)
[2022-03-22 17:55] LABS: HEMOGLOBIN 6.3 g/dL (12.0-15.5)
[2022-03-22 17:58] LABS: FECAL OB PT POSITIVE (NEG)
[2022-03-22 18:18] LABS: INFLUENZA A PATIENT POSITIVE (NEGATIVE); INFLUENZA B PATIENT NEGATIVE (NEGATIVE)
[2022-03-22 20:26] VITALS: BP 131/51
[2022-03-22 20:49] LABS: CLARITY,URINE HAZY; COLOR,URINE YELLOW; GLUCOSE,URINE NEG (NEG)
[2022-03-22 20:50] LABS: BACTERIA,URINE MANY /HPF (0-FEW); NITRITE,URINE POS (NEG); RBC,URINE OCC /HPF (0-2); SQUAMOUS EPITHELIAL CELL,UR MANY /LPF; UROBILINOGEN,URINE 0.2 mg/dL (0.2 mg/dL)
== END 2022-03-22 21:14 | disposition short-term general hospital (02) ==
LOC: ER 16:44
DX: R53.1 Weakness (principal); R53.83 Other fatigue; R06.09 Other forms of dyspnea; I48.91 Unspecified atrial fibrillation; I25.10 Atherosclerotic heart disease of native coronary artery without angina pectoris; K64.4 Residual hemorrhoidal skin tags; I10 Essential (primary) hypertension; I25.2 Old myocardial infarction; Z20.822 Contact with and (suspected) exposure to COVID-19; Z95.0 Presence of cardiac pacemaker; Z88.2 Allergy status to sulfonamides; Z88.8 Allergy status to other drugs, medicaments and biological substances
CPT/HCPCS: 36415; 71045; 80048; 81001; 82274; 83880; 84484; 85025; 85610; 85730; 86850; 86900; 86901; 87077; 87086; 87186; 87426; 87428; 93005; 99285; C9803; U0003